=== PATIENT | female | born 2000 | race African-American/Black ===

== ENCOUNTER 2023-02-19 16:02 | Emergency (ER) | payer BC, MEDICAID, SELFPAY ==
[2023-02-19 16:15] VITALS: BP 146/91; PULSE 62; RESP 20; TEMP 36.7; O2SAT 99; BMI 42.8
--- NOTE | 2023-02-19 16:26 | XR_ITS ---
The [address] [address] Patient Name: WILVER ROJAS MRN: [id number] date: 2000 Sex: F Assigned Patient Location: ER Current Patient Location: ER Accession/Order Number: [id number] Exam Date: 02/19/2023 16:42 Report Date: 02/19/2023 17:15 At the request of: NI MELENDEZ Procedure: XR chest 1V EXAM: XR chest 1V HISTORY: Chest pain COMPARISON: None. TECHNIQUE: Chest X-ray AP, 1 view FINDINGS: Support devices: None. Lungs/pleura: No consolidation, effusion, or pneumothorax. Heart and mediastinum: Normal contours. Bones: No acute abnormality identified. XR/XR chest 1V Impression: No radiographic evidence of acute cardiopulmonary process. Electronically authenticated by: DANNY MEZA Date: 02/19/2023 17:15
--- NOTE | 2023-02-19 16:45 | ED.CHESTPAI1 ---
HPI - Chest Pain General Chief Complaint: Chest Pain Stated Complaint: Chest Pain Time Seen by Provider: 02/19/23 16:18 Source: patient Mode of arrival: walk-in Limitations: no limitations History of Present Illness HPI narrative: Patient is a 22-year-old female who presents to the emergency department for 3-day history of chest pain, shortness of breath. Patient states 1 week ago she had a 2-day history of upper respiratory symptoms. Her daughter was sick with RSV. She states for the last several days she has had pain in the sternum and left upper chest, worse with movement and deep breathing. She does not take control. She has no history of heart or lung problems. She has not had any extremity swelling, hemoptysis. She is unsure if she may be . She has had no other abdominal pain, nausea, vomiting. Related Data Previous Rx's Medication Instructions Recorded methylprednisolone 4 mg tablets in See Rx Instructions .Route 02/19/23 a dose pack (Medrol (Moises)) .COMPLEX #21 ea Allergies Allergy/AdvReac Type Severity Reaction Status Date / Time No Known Drug Allergies Allergy Verified 02/19/23 16:18 Review of Systems ROS Constitutional Denies: fever or chills Ears, nose, mouth, and throat Denies: throat pain or nasal congestion Cardiovascular Reports: chest pain Respiratory Reports: shortness of breath; Denies: cough Gastrointestinal Denies: nausea or vomiting Musculoskeletal Denies: back pain, neck pain or extremity pain Integumentary/Breast Denies: rash Neurological Denies: headache Hematologic/Lymphatic Denies: easy bruising Exam Narrative Exam Narrative: Gen.: Awake, alert, in no distress Head: Normocephalic, atraumatic ENT: Moist mucous membranes Respiratory: No respiratory distress, lungs clear bilaterally Cardio: Regular rate and rhythm Extremities: Moves extremities equally Psych: Normal mood and affect Neuro: No focal neuro deficit Skin: Warm, dry, intact Constitutional Vital Signs, click to edit/add: Last Vital Signs Temp 98.1 F 02/19/23 16:15 Pulse 62 02/19/23 16:15 Resp 20 02/19/23 16:15 BP 146/91 H 02/19/23 16:15 Pulse Ox 99 02/19/23 16:15 O2 Del Method Room Air 02/19/23 16:15 Course Vital Signs Vital signs: Vital Signs Temperature 98.1 F 02/19/23 16:15 Pulse Rate 62 02/19/23 16:15 Respiratory Rate 20 02/19/23 16:15 Blood Pressure 146/91 H 02/19/23 16:15 Pulse Oximetry 99 02/19/23 16:15 Oxygen Delivery Method Room Air 02/19/23 16:15 Temperature 98.1 F 02/19/23 16:15 Pulse Rate 62 02/19/23 16:15 Respiratory Rate 20 02/19/23 16:15 Blood Pressure 146/91 H 02/19/23 16:15 Pulse Oximetry 99 02/19/23 16:15 Oxygen Delivery Method Room Air 02/19/23 16:15 MDM - Chest Pain MDM Narrative Medical decision making narrative: EKG is unremarkable, sinus arrhythmia noted. Lab studies including troponin are unremarkable. Patient with no PE risk factors, PERC score of 0. She has normal vital signs. She is treated with Toradol in the emergency department and will be discharged home with Medrol Dosepak for suspected pleurisy versus chest wall pain. Follow-up with PCP and return to the emergency department if symptoms change or worsen. Medical Records Data Attestation: I reviewed the patient's medical records. Lab Data Attestation: I reviewed the patient's lab results. Labs: Lab Results 02/19/23 Range/Units 16:38 WBC 7.4 (4.0-11.0) 10^3/uL RBC 4.87 (4.20-5.40) 10^6/uL Hgb 12.2 (12.0-16.0) g/dL Hct 36.5 (36.0-48.0) % MCV 74.9 L (81.0-99.0) fL MCH 25.1 L (26.7-34.0) pg MCHC 33.4 (29.9-35.2) g/dL RDW 14.5 (11.0-15.0) % Plt Count 331 (150-450) 10^3/uL MPV 10.1 (9.5-13.5) fL Neut % (Auto) 57.5 (43.0-75.0) % Lymph % (Auto) 31.3 (20.5-60.0) % [place] % (Auto) 8.7 (1.7-12.0) % Eos % (Auto) 1.9 (0.9-7.0) % Baso % (Auto) 0.5 (0.2-2.0) % Neut # (Auto) 4.2 (1.4-6.5) 10^3/uL Lymph # (Auto) 2.3 (1.2-3.8) 10^3/uL [place] # (Auto) 0.6 (0.3-0.8) 10^3/uL Eos # (Auto) 0.1 (0.0-0.7) 10^3/uL Baso # (Auto) 0.0 (0.0-0.1) 10^3/uL Abs Immat Gran (auto) 0.01 (0.00-0.03) 10^3/uL Imm/Tot Granulo (auto) 0.1 (0.0-0.5) % Sodium 136 (136-145) mmol/L Potassium 4.1 (3.5-5.1) mmol/L Chloride 102 (98-107) mmol/L Carbon Dioxide 25.7 (21.0-32.0) mmol/L Anion Gap 12.4 BUN 17.0 (7.0-18.0) mg/dL Creatinine 0.73 (0.55-1.02) mg/dL Est GFR ( Amer) >60 (>=60) Est GFR (Non-Af Amer) >60 (>=60) BUN/Creatinine Ratio 23.3 Glucose 94 (74-106) mg/dL Calcium 8.5 (8.5-10.1) mg/dL Total Bilirubin 0.2 (0.2-1.0) mg/dL AST 16 (15-37) U/L ALT 29 (14-59) U/L Alkaline Phosphatase 49 (46-116) U/L Troponin I High Sens <4.0 L (4.0-51.3) pg/mL Total Protein 8.0 (6.4-8.2) g/dL Albumin 3.8 (3.4-5.0) g/dL Globulin 4.2 g/dL Albumin/Globulin Ratio 0.9 Serum HCG, Qual Negative (NEGATIVE) Imaging Data Chest x-ray: Attestation: I have reviewed the pertinent imaging results. Radiologist's impression: Procedure: XR chest 1V EXAM: XR chest 1V HISTORY: Chest pain COMPARISON: None. TECHNIQUE: Chest X-ray AP, 1 view FINDINGS: Support devices: None. Lungs/pleura: No consolidation, effusion, or pneumothorax. Heart and mediastinum: Normal contours. Bones: No acute abnormality identified. Impression: No radiographic evidence of acute cardiopulmonary process. Electronically authenticated by: DANNY MEZA Date: 02/19/2023 17:15 ECG Data Attestation: I personally reviewed and interpreted this ECG as follows: (Normal sinus rhythm at a rate of 53, sinus arrhythmia with no acute ST elevation or ectopy. EKG reviewed by attending physician) ECG interpretation date: 02/19/23 ECG interpretation time: 17:18 Heart Score History: Slightly/Non-Suspicious ECG: Normal Age: <45 years Risk Factors: 1 or 2 Risk Factors Troponin: <Normal Limit Total Heart Score Recommendations & Risks:: 1 Discharge Plan Discharge Chief Complaint: Chest Pain Clinical Impression: Chest pain Patient Disposition: Home, Self-Care Time of Disposition Decision: 17:18 Condition: Good Prescriptions / Home Meds: New methylprednisolone [Medrol (Moises)] 4 mg tablets,dose pack See Rx Instructions .ROUTE .COMPLEX Qty: 21 0RF Rx Instructions: Taper as directed Instructions: Chest Pain (ED) Stand Alone Forms: Portal Instructions Referrals: Physician,Non-Staff, MD [Primary Care Provider] - 1 week
[2023-02-19 16:46] LABS: Basophils Percent Auto 0.5 % (0.2-2.0); Eosinophils Absolute Auto 0.1 10^3/uL (0.0-0.7); Eosinophils Percent Auto 1.9 % (0.9-7.0); Hematocrit 36.5 % (36.0-48.0); Hemoglobin 12.2 g/dL (12.0-16.0); Immature Granulocytes Abs Auto 0.01 10^3/uL (0.00-0.03); Immature Granulocytes Pct Auto 0.1 % (0.0-0.5); Lymphocytes Absolute Auto 2.3 10^3/uL (1.2-3.8); Lymphocytes Percent Auto 31.3 % (20.5-60.0); Mean Corpuscular HGB Conc 33.4 g/dL (29.9-35.2); Mean Corpuscular Hemoglobin 25.1 pg (26.7-34.0); Mean Corpuscular Volume 74.9 fL (81.0-99.0); Mean Platelet Volume 10.1 fL (9.5-13.5); Monocytes Absolute Auto 0.6 10^3/uL (0.3-0.8); Monocytes Percent Auto 8.7 % (1.7-12.0); Neutrophils Absolute Auto 4.2 10^3/uL (1.4-6.5); Neutrophils Percent Auto 57.5 % (43.0-75.0); Platelet Count 331 10^3/uL (150-450); Red Blood Count 4.87 10^6/uL (4.20-5.40); Red Cell Distribution Width 14.5 % (11.0-15.0); White Blood Count 7.4 10^3/uL (4.0-11.0)
[2023-02-19 16:58] LABS: HCG Qualitative NEGATIVE (NEGATIVE)
[2023-02-19 17:04] LABS: Alanine Aminotransferase 29 U/L (14-59); Albumin Globulin Ratio 0.9; Albumin Level 3.8 g/dL (3.4-5.0); Alkaline Phosphatase 49 U/L (46-116); Anion Gap 12.4; Aspartate Amino Transferase 16 U/L (15-37); BUN Creatinine Ratio 23.3; Bilirubin Total 0.2 mg/dL (0.2-1.0); Calcium 8.5 mg/dL (8.5-10.1); Carbon Dioxide 25.7 mmol/L (21.0-32.0); Chloride 102 mmol/L (98-107); Estimated GFR (African America >60 (>=60); Estimated GFR (Non-African Ame >60 (>=60); Globulin 4.2 g/dL; Glucose 94 mg/dL (74-106); Potassium 4.1 mmol/L (3.5-5.1); Sodium 136 mmol/L (136-145)
[2023-02-19 17:06] LABS: Troponin I High Sensitivity <4.0 pg/mL (4.0-51.3)
--- NOTE | 2023-02-19 17:28 | ECG_ITS ---
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
[2023-02-19] MEDS: KETOROLAC TROMETHAMINE 60 MG/2 ML VIAL IM (17:35)
== END 2023-02-19 17:39 | disposition home or self-care (01) ==
PROVIDERS: Physician Assistant; Emergency Provider Emergency Medicine
DX: R07.9 Chest pain, unspecified (principal)
CPT/HCPCS: 36415; 71045; 80053; 84484; 84703; 85025; 93005; 96372; 99285